=== PATIENT | female | born 1965 | race Native Hawaiian/Other Pacific Islander ===

== ENCOUNTER 2021-12-13 18:41 | Emergency (ER) | payer OTHER ==
[~2021-12-13] VITALS: Ht 170.2 cm; Wt 92.5 kg
[2021-12-13] MEDS ORDERED: 904272561 PO (19:40)
[2021-12-13 20:25] VITALS: BP 155/94; TEMP 98.9
== END 2021-12-13 20:25 | disposition home or self-care (01) ==
LOC: ED 18:41
PROC: 0C903ZZ Drainage of Upper Lip, Percutaneous Approach (ICD-10-PCS; principal; 2021-12-13)
DX: K12.2 Cellulitis and abscess of mouth (principal)
CPT/HCPCS: 87070; 87077; 87185; 87186; 87205; 99283